=== PATIENT | male | born 1995 | race Caucasian/White ===

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

== ENCOUNTER 2018-08-14 23:27 | Emergency (ER) | payer OTHER ==
[~2018-08-14] VITALS: Ht 177.8 cm; Wt 114.4 kg
[~2018-08-14 23:27] MED LIST changes: +CALC300T4 PO; -CARB15DR48 RIGHT EAR; +CARB15DR50 RIGHT EAR; +LORA5SOL74 PO
[2018-08-14 23:28] VITALS: Ht 177.8 cm; Wt 114.4 kg
[2018-08-15] MEDS ORDERED: ONDANSETRON 4 MG INJ IV STA (01:26)
[2018-08-15] MEDS ORDERED: morphine 4 MG/ML VIAL IV STA (01:26)
[2018-08-15] MEDS ORDERED: LABETALOL HCL 20MG INJ IV ONE (02:00)
[2018-08-15] MEDS ORDERED: LORAZEPAM 2 MG INJ IV ONE (03:30)
[2018-08-15] MEDS ORDERED: LABE100T7 PO (03:58)
--- NOTE | 2018-08-15 04:06 | ERD ---
ER Documentation Chief Complaint Chief Complaint HEADACHE WITH N/V X2WKS HPI This is a 23-year-old male comes in because of headache with nausea vomiting for the past 2 weeks patient has known history of hypertension but is been nonc ompliant with medications. Blood pressures have been running high. Denies fevers chills. Denies any focal neurologic complaints. Denies any other medical history. ROS All systems reviewed and are negative except as per history of present illness. Medications Home Meds Active Scripts Labetalol Hcl* (Labetalol Hcl*) 100 Mg Tablet, 100 MG PO BID, #60 TAB Prov:HERNANDEZ GUERREROEL Moises 08/15/18 Calcium Carbonate* (Tums X-Str) 300 Mg Tab.chew, 300 MG PO QID for heartburn for 7 Days, TAB.CHEW Prov:ELIESER,EPIFANIO 09/09/16 Loratadine (Loratadine) 5 Mg/5 Ml Solution, 10 MG PO DAILY, #300 ML Prov:ELIESER,EPIFANIO 09/09/16 Carbamide Peroxide* (Debrox*) 6.5% - 15 Ml Drops, 10 DROP RIGHT EAR BID, #1 BOTTLE Prov:EVERT LADD PA-C 09/06/15 Sodium Chloride (Saline Nasal [place]) 45 Ml [place], 2 SPRAY NS Q1 PRN for congestion or dry nose, #1 BOTTLE Prov:MARII CLEMONS NP 09/13/14 Ibuprofen* (Motrin*) 600 Mg Tab, 600 MG PO Q6H PRN for PAIN AND OR ELEVATED TEMP, #30 Prov:MARII CLEMONS. MVA OPERATOR 09/13/14 Allergies Allergies: Coded Allergies: No Known Allergy (Verified , 09/13/14) PMhx/Soc History of Surgery: Yes (Tonsillectomy) Anesthesia Reaction: No Hx Neurological Disorder: No Hx Respiratory Disorders: Yes (Asthma) Hx Cardiac Disorders: Yes (HTN ) Hx Psychiatric Problems: No Hx Miscellaneous Medical Probl: Yes (Epistaxis,Tremors ) Hx Alcohol Use: No Hx Substance Use: No Hx Tobacco Use: No Smoking Status: Never smoker Physical Exam Vitals Vital Signs Date Temp Pulse Resp B/P (MAP) Pulse Ox O2 O2 Flow FiO2 Time Delivery Rate 08/15/18 94 16 157/85 98 Room Air 03:04 (109) 08/14/18 97.7 112 19 211/112 97 23:28 (145) Physical Exam Const: No acute distress Head: Atraumatic Eyes: Normal Conjunctiva ENT: Normal External Ears, Nose and Mouth. Neck: Full range of motion. No meningismus. Resp: Clear to auscultation bilaterally Cardio: Regular rate and rhythm, no murmurs Abd: Soft, non tender, non distended. Normal bowel sounds Skin: No petechiae or rashes Back: No midline or flank tenderness Ext: No cyanosis, or edema Neur: Awake and alert Psych: Normal Mood and Affect Result Diagram: 08/15/1813908/15/18139 Results 24 hrs Laboratory Tests Test 08/15/18 01:40 White Blood Count 12.0 10^3/ul Red Blood Count 5.59 10^6/ul Hemoglobin 16.0 g/dl Hematocrit 47.8 % Mean Corpuscular Volume 85.5 fl Mean Corpuscular Hemoglobin 28.6 pg Mean Corpuscular Hemoglobin Concent 33.5 g/dl Red Cell Distribution Width 12.4 % Platelet Count 335 10^3/UL Mean Platelet Volume 9.1 fl Immature Granulocytes % 0.300 % Neutrophils % 54.1 % Lymphocytes % 35.5 % Monocytes % 6.8 % Eosinophils % 2.8 % Basophils % 0.5 % Nucleated Red Blood Cells % 0.0 /100WBC Immature Granulocytes # 0.040 10^3/ul Neutrophils # 6.5 10^3/ul Lymphocytes # 4.3 10^3/ul Monocytes # 0.8 10^3/ul Eosinophils # 0.3 10^3/ul Basophils # 0.1 10^3/ul Nucleated Red Blood Cells # 0.0 10^3/ul Prothrombin Time 12.1 Sec Prothrombin Time Ratio 0.9 INR International Normalized Ratio 0.89 Activated Partial Thromboplast Time 32.4 Sec Sodium Level 140 mmol/L Potassium Level 4.0 mmol/L Chloride Level 105 mmol/L Carbon Dioxide Level 26 mmol/L Anion Gap 9 Blood Urea Nitrogen 9 mg/dl Creatinine 0.75 mg/dl Est Glomerular Filtrat Rate mL/min > 60 mL/min Glucose Level 96 mg/dl Calcium Level 9.8 mg/dl Troponin I < 0.012 ng/ml Current Medications Medications Dose Sig/[place] Start Time Status Last (Trade) Ordered Route PRN Stop Time Admin Dose Reason Admin Morphine 4 mg ONCE STAT 08/15/18 DC 08/15/18 Sulfate IV : 01:39 (morphine) 08/15/18 01:28 Ondansetron 4 mg ONCE STAT 08/15/18 DC 08/15/18 HCl (Zofran IV : 01:39 Inj) 08/15/18 01:28 Labetalol 10 mg ONCE ONCE 08/15/18 DC 08/15/18 HCl IV 02:00 02:33 (Labetalol) 08/15/18 02:01 Lorazepam 1 mg ONCE ONCE 08/15/18 DC 08/15/18 (Ativan) IV 03:30 03:38 08/15/18 03:31 Procedures/MDM EKG: Rate/Rhythm: [Normal Sinus Rhythm] QRS, ST, T-waves: [No changes consistent w/ acute ischemia] Impression: [No evidence of ischemia or arrhythmia] Chest X-ray 1V Interpreted by me: Soft Tissue: No acute abnormalities Bones: No acute abnormalities Mediastinum/Cardiac Silhouette/Lungs: [No acute abnormalities] Medical decision making: Patient's neurologic symptoms have stabilized while they have been evaluated in the department and are appropriate for outpatient work up. No e/o meningitis, intracranial bleed, seizure, stroke. Patient's blood pressure was elevated (>120/80) but appears stable without evidence of hypertension emergency or urgency. The patient was counseled about the risks of hypertension and urged to pursue outpatient monitoring and therapy within a week with their primary care physician. Departure Diagnosis: Primary Impression: Headache Headache type: unspecified Headache chronicity pattern: unspecified pattern Intractability: not intractable Qualified Codes: R51 - Headache Condition: Stable Patient Instructions: Headache, Unspecified, Hypertension, Established, Out Of Control FABIOLA GUERRERO August 15, 2018 04:06
[2018-08-15 04:07] VITALS: BP 137/77; PULSE 94; RESP 16
== END 2018-08-15 04:24 | disposition home or self-care (01) ==
LOC: E/R 23:27
DX: R51 Headache (principal); I10 Essential (primary) hypertension; J45.909 Unspecified asthma, uncomplicated; R11.2 Nausea with vomiting, unspecified
CPT/HCPCS: 36415; 70450; 71045; 80048; 84484; 85025; 85610; 85730; 96374; 96375; 99285; J2060; J2270; J2405

== ENCOUNTER 2018-08-24 23:53 | Emergency (ER) | payer SELFPAY ==
[~2018-08-24] VITALS: Ht 175.3 cm; Wt 113.5 kg
[~2018-08-24 23:53] MED LIST changes: +LABE100T7 PO
[2018-08-24 23:57] VITALS: Ht 175.3 cm; Wt 113.5 kg
[2018-08-25] MEDS ORDERED: KETOROLAC 30 MG INJ IM STA (01:08)
--- NOTE | 2018-08-25 01:18 | ERD ---
ER Documentation Chief Complaint Chief Complaint bib self, cc: mid sternal cp, anxiety, and sob 2 hours prior to arrival HPI This is a 23-year-old male who presents for an episode of nonexertional chest pain and shortness of breath, that began about 2 hours prior to arrival. Patient states he was holding his son at the time, and the episode occurred, it self resolved, he has no cardiac history, he has a history of asthma, but has not had any wheezing, no fever. He has not had any leg swelling, no history of coagulopathy, no hemoptysis, no recent travel or immobility. Has a mild gradual onset headache, he was seen for this here recently. He has not had a fever This. ROS All systems reviewed and are negative except as per history of present illness. Medications Home Meds Active Scripts Labetalol Hcl* (Labetalol Hcl*) 100 Mg Tablet, 100 MG PO BID, #60 TAB Prov:FABIOLA GUERRERO 08/15/18 Calcium Carbonate* (Tums X-Str) 300 Mg Tab.chew, 300 MG PO QID for heartburn for 7 Days, TAB.CHEW Prov:ELIESER,EPIFANIO 09/09/16 Loratadine (Loratadine) 5 Mg/5 Ml Solution, 10 MG PO DAILY, #300 ML Prov:ELIESER,EPIFANIO 09/09/16 Carbamide Peroxide* (Debrox*) 6.5% - 15 Ml Drops, 10 DROP RIGHT EAR BID, #1 BOTTLE Prov:EVERT LADD PA-C 09/06/15 Sodium Chloride (Saline Nasal [place]) 45 Ml [place], 2 SPRAY NS Q1 PRN for congestion or dry nose, #1 BOTTLE Prov:MARII CLEMONS. PROJECT ASSISTANT 09/13/14 Ibuprofen* (Motrin*) 600 Mg Tab, 600 MG PO Q6H PRN for PAIN AND OR ELEVATED TEMP, #30 Prov:MARII CLEMONS. PROJECT ASSISTANT 09/13/14 Allergies Allergies: Coded Allergies: No Known Allergy (Verified , 09/13/14) PMhx/Soc History of Surgery: Yes (Tonsillectomy) Anesthesia Reaction: No Hx Neurological Disorder: No Hx Respiratory Disorders: Yes (Asthma) Hx Cardiac Disorders: Yes (HTN ) Hx Psychiatric Problems: No Hx Miscellaneous Medical Probl: Yes (Epistaxis,Tremors ) Hx Alcohol Use: No Hx Substance Use: No Hx Tobacco Use: No Smoking Status: Never smoker Physical Exam Vitals Vital Signs Date Temp Pulse Resp B/P (MAP) Pulse Ox O2 O2 Flow FiO2 Time Delivery Rate 08/24/18 98.1 79 19 138/82 100 23:57 (100) Physical Exam Const: No acute distress, well-developed well-nourished Head: Atraumatic Eyes: Normal Conjunctiva ENT: Normal External Ears, Nose and Mouth. Neck: Full range of motion. No meningismus. Resp: Clear to auscultation bilaterally, no wheezes Cardio: Regular rate and rhythm, no murmurs, no JVD Abd: Soft, non tender, non distended. Normal bowel sounds Skin: No petechiae or rashes Back: No midline or flank tenderness Ext: No cyanosis, or edema Neur: Awake and alert Psych: Normal Mood and Affect Results 24 hrs Current Medications Medications Dose Sig/[place] Start Time Status Last (Trade) Ordered Route PRN Stop Time Admin Dose Reason Admin Ketorolac 30 mg ONCE STAT 08/25/18 DC 08/25/18 Tromethamine IM 01:08 08/25/18 01:16 (Toradol) 01:09 Procedures/MDM 23-year-old male presents for a brief episode of chest pain. His symptoms were nonexertional, and he has no risk factors for acute coronary syndrome, additiona lly he is PERC negative, at this point I do not suspect cardiopulmonary emergent etiology for symptoms. His EKG and chest x-ray are unremarkable, he is given Toradol for his headache, at discharge patient was ambulatory and in no distress. EKG: Rate/Rhythm: Normal Sinus Rhythm QRS, ST, T-waves: No changes consistent w/ acute ischemia Impression: No evidence of ischemia or arrhythmia Chest X-ray 1V Interpreted by me: Soft Tissue: No acute abnormalities Bones: No acute abnormalities Mediastinum/Cardiac Silhouette/Lungs: No acute abnormalities Departure Diagnosis: Primary Impression: Chest pain Chest pain type: unspecified Qualified Codes: R07.9 - Chest pain, unspecified Condition: Stable CONSTANTIN BRODY MD Aug 25, 2018 01:18
[2018-08-25 01:47] VITALS: BP 153/73; PULSE 79; RESP 19
== END 2018-08-25 01:49 | disposition home or self-care (01) ==
LOC: E/R 23:53
DX: R07.89 Other chest pain (principal); J45.909 Unspecified asthma, uncomplicated; I10 Essential (primary) hypertension
CPT/HCPCS: 71045; 93005; 96372; 99284; J1885